=== PATIENT | female | born 1970 | race Caucasian/White ===

== ENCOUNTER 2017-08-10 11:48 | Observation (INO) | payer MEDICARE ==
[2017-08-10 12:54] LABS: #Basophils 0.1 thou/uL (0.0-0.2); #Eosinphils 0.2 thou/uL (0.0-0.7); #Lymphocytes 4.5 thou/uL (1.20-3.40); #Monocytes 0.7 thou/uL (0.11-0.59); %Basophils 0.3 % (0.0-1.0); %Eosinophils 1.4 % (0.0-10.0); %Lymphocytes 29.2 % (21.0-51.0); %Monocytes 4.6 % (0.0-10.0); %Neutrophils 64.5 % (42.0-75.0); Mean Corpuscular HGB CONC 32.7 g/dL (32.0-36.0); Mean Corpuscular Hemoglobin 30.4 pg (27.0-31.0); Mean Corpuscular Volume 92.9 fl (81.0-99.0); Mean Platelet Volume 6.6 fL (7.4-10.4); Platelet Count 372 thou/uL (130-400); RBC Distribution Width 13.2 % (11.5-14.5); Red Blood Cell (RBC) Count 4.62 mill/uL (4.20-5.40); White Blood Cell (WBC) Count 15.5 thou/uL (4.8-10.8)
--- NOTE | 2017-08-10 12:59 | RAD ---
PORTABLE UUPRIGHT FRONTAL CHEST RADIOGRAPH: Date: 08-10-17 Comparison: None. History: Difficulty breathing, chest pain. FINDINGS: There is no pneumothorax, pleural fluid, focal consolidation or alveolar edema. Heart and mediastinal contours appear within normal limits. IMPRESSION: No acute findings. POS: [facility]
[2017-08-10 13:08] LABS: ALT (SGPT) 37 U/L (8-55); AST (SGOT) 28 U/L (5-34); Albumin 3.7 g/dL (3.5-5.0); Alkaline Phosphatase 111 U/L (40-150); Anion Gap 11 mmol/L (10-20); BUN (Urea Nitrogen) 13 mg/dL (7.0-18.7); Bilirubin, Total 0.3 mg/dL (0.2-1.2); Calc. Creatinine Clearance 0 mL/min (70-130); Calcium 8.7 mg/dL (7.8-10.44); Carbon Dioxide 32 mmol/L (22-29); Chloride 96 mmol/L (98-107); Estimated GFR-MDRD 67; Glucose 95 mg/dL (70-105); Potassium 3.3 mmol/L (3.5-5.1); Protein, Total 6.7 g/dL (6.0-8.3); Sodium 136 mmol/L (136-145)
[2017-08-10 13:11] LABS: Troponin I Less than 0.010 ng/mL (< 0.028)
[2017-08-10] MEDS ORDERED: ISOVUE-370 76%-LOCM 1 ML ONE (13:59)
--- NOTE | 2017-08-10 15:23 | CT ---
CT ANGIOGRAM OF THE CHEST: Date: 08/10/17 HISTORY: Difficulty breathing. Heart failure. COMPARISON: None. TECHNIQUE: CT angiogram of the chest is performed in the axial plane. Three-dimensional reformatted images are s ubmitted for interpretation. FINDINGS: No mediastinal mass, lymphadenopathy, or hematoma. Heart size is within normal limits. No pericardial effusion. The thoracic aorta and upper abdominal aorta have a normal caliber. No periaortic fat stra nding. Visualized upper solid organs are unremarkable. Trachea and central bronchi are patent. No consolidation or masses. Patchy ground-glass opacities. No pleural effusion. No pneumothorax. Minimal scarring/atelectasis in the lung bases. No lytic or blastic lesions in the osseous structures. Suboptimal evaluation of the pulmonary arterial system due to poor timing of bolus. Central pulmonary arteries have appropriate opacification without evidence of filling defect. The lobar, segmental, an d subsegmental arteries cannot be adequately assessed. IMPRESSION: 1. Inadequate assessment of the pulmonary arterial system due to poor timing of contrast bolus. No o bvious central pulmonary artery embolism. The remainder of the pulmonary arterial system cannot be ad equately assessed. 2. Minimal patchy ground-glass opacities, nonspecific. Correlate for edema or infiltrate. POS: [facility]
[2017-08-10 16:03] LABS: Troponin I Less than 0.010 ng/mL (< 0.028)
[2017-08-10] MEDS ORDERED: Aspirin 325 MG TAB ONE (16:51)
[2017-08-10 18:22] VITALS: BMI 53.1
[2017-08-10] MEDS ORDERED: Ondansetron PF 4 MG/2 ML Vial IVP PRN (18:41)
[2017-08-10] MEDS ORDERED: Ondansetron ODT 4 MG TAB SL PRN (18:41)
[2017-08-10 20:16] LABS: Troponin I Less than 0.010 ng/mL (< 0.028)
[2017-08-10] MEDS ORDERED: Bisacodyl 10 MG SUPP PR PRN (22:16)
[2017-08-10] MEDS ORDERED: Senokot 8.6 MG TAB PO PRN (22:16)
[2017-08-10] MEDS ORDERED: Bisacodyl 5 MG TAB PO PRN (22:16)
[2017-08-10] MEDS: Sodium Chloride 0.9% 1,000 ML IV SCH (23:03)
[2017-08-11 04:36] LABS: #Eosinphils 0.4 thou/uL (0.0-0.7); #Lymphocytes 3.6 thou/uL (1.20-3.40); #Monocytes 0.7 thou/uL (0.11-0.59); #Neutrophils 8.2 thou/uL (1.40-6.50); %Basophils 0.1 % (0.0-1.0); %Eosinophils 2.7 % (0.0-10.0); %Lymphocytes 27.9 % (21.0-51.0); %Neutrophils 64.2 % (42.0-75.0); Hemoglobin 14.6 g/dL (12.0-16.0); Mean Corpuscular HGB CONC 33.2 g/dL (32.0-36.0); Mean Corpuscular Hemoglobin 30.7 pg (27.0-31.0); Mean Corpuscular Volume 92.5 fl (81.0-99.0); Mean Platelet Volume 6.9 fL (7.4-10.4); Platelet Count 294 thou/uL (130-400); RBC Distribution Width 13.4 % (11.5-14.5); Red Blood Cell (RBC) Count 4.76 mill/uL (4.20-5.40); White Blood Cell (WBC) Count 12.8 thou/uL (4.8-10.8)
[2017-08-11 05:00] LABS: Anion Gap 15 mmol/L (10-20); BUN (Urea Nitrogen) 13 mg/dL (7.0-18.7); Calc. Creatinine Clearance 202 mL/min (70-130); Calcium 8.5 mg/dL (7.8-10.44); Carbon Dioxide 29 mmol/L (22-29); Chloride 98 mmol/L (98-107); Estimated GFR-MDRD 83; Glucose 92 mg/dL (70-105); Potassium 3.8 mmol/L (3.5-5.1); Sodium 138 mmol/L (136-145)
[2017-08-11] MEDS: Furosemide 40 MG/4 ML VIAL SLOW IVP SCH ×2 (05:00→14:08)
--- NOTE | 2017-08-11 08:12 | ULT ---
BILATERAL LOWER EXTREMITY VENOUS DUPLEX SONOGRAM: HISTORY: Bilateral leg pain and edema. FINDINGS: Each common femoral vein and greater saphenous junction were evaluated along with each femoral, deep femoral, popliteal, and posterior tibial vein. There is good color and color Doppler flow, compressi on, and augmentation. IMPRESSION: No sonographic evidence of deep vein thrombosis within either lower extremity. POS: [facility]
[2017-08-11] MEDS ORDERED: Enoxaparin Sodium 40 MG/0.4 ML SYRINGE SC SCH (09:00)
[2017-08-11 12:04] VITALS: BP 104/58; TEMP 98.2
[2017-08-11] MEDS ORDERED: Furosemide 40 MG/4 ML VIAL SLOW IVP SCH (13:15)
[2017-08-11 14:48] LABS: Bilirubin Negative (Negative); Blood, Urine Negative (Negative); Clarity CLOUDY (Clear); Glucose, Urine (Dipstick) Negative (Negative); Leukocyte Trace (Negative); Nitrite Negative (Negative); Protein, Urine (Dipstick) Negative (Neg-Trace); Specific Gravity, Urine 1.016 (1.002-1.036); Urobilinogen 0.2 mg/dL (0.2-1.0); pH, Urine 6.5 (5.0-9.0)
[2017-08-11 14:56] LABS: Bacteria/HPF Rare-Few HPF (None Seen); Hyaline Casts/LPF 0-3 HYALINE CAST LPF (0-3 Hyaline); Pathc Cast-AUWi Flag 0.29 (0-2.49); WBC/HPF 0-3 HPF (0-3); Yeast-AUWi Flag 62.5 (0-25.0)
[2017-08-11 15:08] LABS: RBC/HPF 0-3 HPF (0-3)
[2017-08-11 15:09] LABS: Yeast-All Forms None Seen HPF (None Seen)
--- NOTE | 2017-08-12 15:28 | SS ---
CHIEF COMPLAINT: Shortness of breath. HISTORY OF PRESENT ILLNESS: This is a 47-year-old female with a known history of asthma, COPD, hyper tension, hyperlipidemia who presents with a chief complaint of shortness of breath that awoke her fro m sleep at approximately 3:00 a.m. She also endorses a significant weight gain over the last month a nd progressive shortness of breath at night that has gotten incrementally better when using pillows; however, she has difficulty when lying flat. The patient reports having had prior similar issues for which she sees her out of town cardiovascular disease specialist in [place]. At the time of my evaluation, the patient feels that her symptoms are somewhat better after administr ation of IV Lasix in the emergency department. REVIEW OF SYSTEMS: As per HPI. CONSTITUTIONAL: Weight gain as described above. No fevers, no chills. HEENT: No new headaches, vision changes, dizziness or lightheadedness. CARDIOVASCULAR: No chest pain, chest pressure. No left-sided arm numbness or tingling. No episodes of palpitation. RESPIRATORY: Shortness of breath as above. No cough. No wheezing, congestion. No sick contacts wi th upper respiratory symptoms. GASTROINTESTINAL: No nausea, no vomiting, no abdominal pain associated with diarrhea or constipation . GENITOURINARY: No dysuria, frequency or changes in urinary frequency, quality. MUSCULOSKELETAL: No new myalgias. The remainder of the review of systems otherwise negative. PAST MEDICAL HISTORY: As per above. 1. Hypertension. 2. Hyperlipidemia. 3. Obesity. 4. Asthma. 5. Chronic obstructive pulmonary disease. 6. Prior history of . 7. Status post appendectomy. 8. Status post cholecystectomy. 9. Status post right knee "clean out" multiple times. 10. Anxiety and depression. 11. Post-traumatic stress disorder. MEDICATIONS: Per EMR the patient's regimen includes ipratropium 1 inhalation p.r.n., albuterol 90 mc g 2 puffs p.r.n., Spiriva 18 mcg, 2 puffs once a day, Symbicort 160 mcg-4.5 mcg 2 puffs b.i.d., rizat riptan 10 mg p.o. p.r.n., aspirin 81 mg daily, Lasix 160 mg p.o. daily, K-Dur 20 mEq daily, omeprazol e 40 mg p.o. once a day, benztropine 1 mg p.o. b.i.d., prazosin 2 mg p.o. daily, Paxil 5 mg p.o. karen y, Latuda 50 mg p.o. at bedtime. ALLERGIES: No known drug allergies. FAMILY HISTORY: No known family history of congestive heart failure. SOCIAL HISTORY: The patient reports intermittent marijuana use. Active tobacco use to the tune of 1 pack a day. Denies any alcohol or other illicit drug use. CODE STATUS: The patient endorses wishes to be full code at this point in time. OBJECTIVE: GENERAL: The patient is awake, alert, appropriate, conversant, lying in the hospital bed in no acute distress. HEENT: Normocephalic, atraumatic. Equal ocular motions are intact. Moist mucous membranes. CARDIOVASCULAR: S1, S2. No murmurs, rubs or gallops. Pulses 2+ bilateral upper extremities. RESPIRATORY: Reasonable air movement. No conversational dyspnea, no wheezes, rales or rhonchi, dimi nished air movement. ABDOMEN: Positive bowel sounds, obese, soft, nontender to palpation. MUSCULOSKELETAL: Moving all 4 extremities independently. LABORATORY AND IMAGIN08/10/2017 - CTA of the chest; impression "inadequate assessment of the pu lmonary arterial system due to poor timing of contrast bolus. No obvious central pulmonary artery em bolism. The remainder of the pulmonary arterial system cannot be adequately assessed. Minimal patch y ground glass opacities, nonspecific correlate for edema or infiltrate." WBC 15.5, hemoglobin 14.0, hematocrit 42.9, platelets 372. Sodium 136, potassium 3.3, chloride 96, b icarbonate 32, BUN 13, creatinine 0.9, glucose 95, total calcium 8.7, total bilirubin 0.3, AST 28, AL T 37, alkaline phosphatase 111. Troponin initial less than 0.01. BNP 38.8, total protein 6.7, album in 3.7. ASSESSMENT AND PLAN: This is a 47-year-old female who initially presents with a chief complaint of s hortness of breath. 1. Shortness of breath. No known history of congestive heart failure with a clinical picture consis tent with exacerbation. The patient is already being seen longitudinally by her cardiovascular disease specialist. The p atient states that she will likely be returning home to [place] in the next 2-3 weeks. The patien t will have a repeat echocardiogram completed, serial troponins to monitor for any acute coronary syn drome that may be playing a role in her presentation. Given that the patient currently is conversant without any complaints of shortness of breath and is on room air and ambulatory with significant imp rovement with diuresis, I do not suspect pulmonary embolism as the etiology for her presentation at t his point in time. We will continue with diuresis, resumption of the patient's home medications. 2. Leukocytosis, suspect likely reactive. The patient does not have any apparent foci of infection. We will continue to monitor clinically and recheck a CBC in the morning. DIET: Cardiac. ACTIVITY: As tolerated. Deep venous thrombosis prophylaxis, enoxaparin DISCHARGE DIAGNOSES: Same as admission include: 1. Shortness of breath without hypoxia. 2. Congestive heart failure exacerbation, resolved. 3. Leukocytosis, likely reactive, resolved. The patient was diuresed with IV Lasix and then resumed on her home regimen with ambulatory assessmen t prior to discharge. The patient is able to complete her basic ADLs at the time of discharge without assistance and without supplemental oxygenation requirement. The patient understands the plan for d ischarge and that she is to resume her home medications with close followup with her outpatient team including her PCP and cardiovascular disease specialist. 08/11/2017 - Echocardiogram summary; "left ventricular size is normal. Ejection fraction is visually estimated at 55-60%. Left atrium is of normal size. Structurally normal mitral valve. No evidence of mitral regurgitation. Structurally normal aortic valve with no significant stenosis or regurgita tion. Trace tricuspid regurgitation".
--- NOTE | 2017-08-15 00:04 | EKG ---
Test Reason : Blood Pressure : / mmHG Vent. Rate : 089 BPM Atrial Rate : 089 BPM P-R Int : 164 ms QRS Dur : 080 ms QT Int : 396 ms P-R-T Axes : 073 062 070 degrees QTc Int : 481 ms Normal sinus rhythm Possible Left atrial enlargement Prolonged QT Abnormal ECG Confirmed by PURA STAHL ([id number]), market editor ANGÉLICA HERNANDEZ ([id number]) on 08/15/2017 12:04:29 AM Referred By: ANTONIO DOCKERY Confirmed By:PURA STAHL
== END 2017-08-11 16:30 | disposition home or self-care (01) ==
LOC: ERS 11:48 → 2SW 17:09
PROVIDERS: ADMIT Emergency Medicine; ATTEND Emergency Medicine
DX: I11.0 Hypertensive heart disease with heart failure (principal); I50.9 Heart failure, unspecified; D72.829 Elevated white blood cell count, unspecified; J44.9 Chronic obstructive pulmonary disease, unspecified; E78.5 Hyperlipidemia, unspecified; E66.9 Obesity, unspecified; F41.9 Anxiety disorder, unspecified; F32.9 Major depressive disorder, single episode, unspecified; F17.210 Nicotine dependence, cigarettes, uncomplicated; Z79.82 Long term (current) use of aspirin; Z79.899 Other long term (current) drug therapy; Z68.43 Body mass index [BMI] 50.0-59.9, adult
CPT/HCPCS: 71045; 71275; 80048; 80053; 82553; 83880; 84484 ×2; 85025 ×2; 93005; 93306; 93970; 94760; 96372; 96374; 96376; 97139; 99285; G0378; 36415; 81003; 81015; J1650; J1940

== ENCOUNTER 2018-04-07 16:15 | Emergency (ER) | payer MEDICARE | END 2018-04-07 18:17 | disposition left against medical advice (07) | LOC: ERS 16:15 | DX: Z53.21 Procedure and treatment not carried out due to patient leaving prior to being seen by health care provider (principal) ==